=== PATIENT | female | born 2000 | race Hispanic/Latino ===

== ENCOUNTER 2023-10-12 10:48 | Emergency (ER) | payer OTHER | END 2023-10-12 12:00 | disposition home or self-care (01) | LOC: CSHERS 10:48 | DX: S80.02XA Contusion of left knee, initial encounter (principal); F17.290 Nicotine dependence, other tobacco product, uncomplicated; W01.0XXA Fall on same level from slipping, tripping and stumbling without subsequent striking against object, initial encounter ==